=== PATIENT | female | born 1990 | race Caucasian/White ===

== ENCOUNTER 2018-07-05 00:29 | Emergency (ER) | END 2018-07-05 02:20 | disposition home or self-care (01) ==

== ENCOUNTER 2018-07-23 08:11 | Emergency (ER) | payer OTHER ==
[~2018-07-23] VITALS: Ht 149.9 cm; Wt 75.0 kg
[~2018-07-23 08:11] MED LIST: D-ME473S2 PO; IBUP-1542 PO
[2018-07-23 08:21] VITALS: BP 142/77; PULSE 132; RESP 28; Ht 149.9 cm; Wt 75.0 kg
--- NOTE | 2018-07-23 08:53 | ERD ---
ER Documentation Chief Complaint Chief Complaint cough and chest congestion x 3 days HPI 28-year-old female, previously healthy, presents to the emergency department, complaining of 3 days with worsening of upper respiratory symptoms, all family members with similar symptoms. The patient is complaining of fever, T-max 102, associated with cough, chest congestion, sore throat and general malaise. The patient has been taking [id number] medications without improvement of the symptoms. No flu vaccine this season. ROS All systems reviewed and are negative except as per history of present illness. Medications Home Meds Active Scripts Promethazine Hcl* (Promethazine Hcl* Syrup) 6.25 Mg/5 Ml Syrup, 6.25 MG PO QHS PRN for COUGH, #60 ML Prov:KAYLA ASH MD 07/23/18 Inhaler, Assist Devices (Compact Space Chamber) 1 Each Spacer, EACH MC QID PRN for COUGH, #1 Prov:KAYLA ASH MD 07/23/18 Albuterol Sulfate* (Proair HFA*) 8.5 Gm Hfa.aer.ad, 2 PUFF INH Q4H PRN for WHEEZING AND SOB, #1 INHALER Prov:KAYLA ASH MD 07/23/18 Ibuprofen* (Motrin*) 600 Mg Tab, 600 MG PO Q8, #12 TAB Prov:KAYLA ASH MD 07/23/18 Clarithromycin* (Clarithromycin*) 500 Mg Tablet, 500 MG PO BID for 7 Days, TAB Prov:KAYLA ASH MD 07/23/18 Dextromethorphan Hb-Promethazine Hcl* (Promethazine DM* Syrup) 473 Ml Syrup, 5 ML PO Q6 PRN for COUGH for 5 Days, ML Prov:MARII DEL REAL MD 07/05/18 Ibuprofen* (Motrin*) 600 Mg Tab, 600 MG PO Q6, #15 TAB Prov:MARII DEL REAL MD 07/05/18 Allergies Allergies: Coded Allergies: No Known Allergies (Verified Allergy, Unknown, 03/10/07) PMhx/Soc Medical and Surgical Hx: pt denies Medical Hx, pt denies Surgical Hx History of Surgery: No Anesthesia Reaction: No Hx Neurological Disorder: No Hx Respiratory Disorders: No Hx Cardiac Disorders: No Hx Psychiatric Problems: No Hx Miscellaneous Medical Probl: No Hx Alcohol Use: No Hx Substance Use: No Hx Tobacco Use: No Smoking Status: Never smoker FmHx Family History: No diabetes, No coronary disease Physical Exam Vitals Vital Signs Date Temp Pulse Resp B/P (MAP) Pulse Ox O2 O2 Flow FiO2 Time Delivery Rate 07/23/18 99.6 132 28 142/77 99 08:21 (98) Physical Exam Patient alert, oriented, vital signs stable. HEENT: Normocephalic, atraumatic. EYES: PERRLA, EOMI, Sclera and conjunctiva appear normal. EARS: Canals clear, tympanic membranes WNL. THROAT: Erythematous oropharynx. NECK: Supple, No lymphadenopathy. Full ROM without pain or tenderness. HEART: RRR, no rubs, murmurs, clicks or gallops. LUNGS: Bilateral rhonchi to auscultation. ABDOMEN: Soft, non-tender without masses or hepatosplenomegaly. EXTREMITIES: No edema bilaterally. BACK: Full ROM, no deformity, normal back exam NEURO: Cranial nerves grossly intact, no motor or sensory deficit Results 24 hrs Current Medications Medications Dose Sig/Alexys Start Time Status Last (Trade) Ordered Route PRN Stop Time Admin Dose Reason Admin 650 mg ONCE ONCE 07/23/18 DC 07/23/18 Acetaminophen PO 09:00 08:58 (Tylenol 07/23/18 09:01 Tab) Procedures/MDM Vital signs stable, no respiratory distress. Differential diagnosis include but not limited to: Respiratory infection bacterial/viral/fungal. Influenza, croup, bronchiolitis, pneumonitis, allergies, GERD. Less likely foreign body aspiration, cardiac related. Physical examination and clinical presentation consistent most likely with viral infection with early superimposed bacterial infection. During the ED course the patient remained stable, no new complaints. Treatment options and clinical impression discussed with the patient who agrees with management. The patient is stable to be treated outpatient and will be discharged home. Some side effects of prescribed medications (headache, rash, nausea, vomiting, diarrhea, interactions with other medications) were reviewed. The patient needs to follow up with the primary care provider in the next 48h. If symptoms persist, worsen or new symptoms develop, then patient should return to the ED immediately. Disclaimer: Inadvertent spelling and grammatical errors are likely due to EHR/dictation software use and do not reflect on the overall quality of patient care. Also, please note that the electronic time recorded on this note does not necessarily reflect the actual time of the patient encounter. Departure Diagnosis: Primary Impression: Cough Additional Impression: Superimposed infection Condition: Stable Additional Instructions: Thank you very much for allowing us to participate in your care. Your health and safety is our top priority at [facility]. Call your primary care doctor TOMORROW for an appointment during the next 2-4 days and bring all the information and medications prescribed. Have prescriptions filled and follow precisely the directions on the label. If the symptoms get worse and your provider is unavailable, return to the Emergency Department immediately. KAYLA ASH MD Jul 23, 2018 08:53
[2018-07-23] MEDS ORDERED: ACETAMINOPHEN 325 MG TAB PO ONE (09:00)
[2018-07-23] MEDS ORDERED: IBUP-1542 PO (09:06)
[2018-07-23] MEDS ORDERED: PROM6.2515 PO (09:06)
[2018-07-23] MEDS ORDERED: CLAR500T PO (09:06)
[2018-07-23] MEDS ORDERED: ALBU8.5H8 INH (09:06)
[2018-07-23] MEDS ORDERED: INHA-3 MC (09:06)
== END 2018-07-23 09:18 | disposition home or self-care (01) ==
LOC: FTE 08:11
DX: A49.9 Bacterial infection, unspecified (principal)
CPT/HCPCS: Z7502; Z7610; 99283